=== PATIENT | male | born 1960 | race Caucasian/White ===

== ENCOUNTER 2025-01-28 19:36 | Emergency (ER) | payer OTHER ==
[~2025-01-28] VITALS: Ht 182.9 cm; Wt 109.0 kg
[2025-01-28 20:11] LABS: BASOPHILS 0.8 % (0-2); EOSINOPHILS 1.6 % (0-6); HEMATOCRIT 49.7 % (35.0-50.0); HEMOGLOBIN 17.7 g/dL (12.0-18.0); LYMPHOCYTES 26.7 % (24-44); MCH 31.2 (27-36); MCHC 35.6 g/dl (30-36); MCV 87.8 fl (81-99); MONOCYTES 8.2 % (0-12); NEUTROPHILS 62.7 % (39-80); PLATELET COUNT 217 K/uL (140-440); RBC 5.66 M/ul (4.3-5.7); RDW 13.2 (10.5-15.0)
[2025-01-28 20:22] LABS: ALBUMIN 3.8 g/dL (3.4-5.0); ALBUMIN/GLOBULIN RATIO 1.12 (1.1-2.4); ANION GAP 10.9 (7-21); BILIRUBIN, TOTAL 0.4 mg/dL (0.2-1.0); BUN/CREATININE RATIO 14.52 (6.0-28.6); CALCIUM 8.6 mg/dL (8.5-10.1); CREATININE, SERUM 1.17 mg/dL (0.70-1.30); MAGNESIUM 1.8 mg/dL (1.8-2.4); POTASSIUM 3.9 mmol/L (3.5-5.1); PROTEIN, TOTAL 7.2 g/dL (6.4-8.2)
[2025-01-28] MEDS ORDERED: ENALAPRILAT DIHYDRATE 1.25 MG/ML VIAL IV ONE (20:45)
[2025-01-28] MEDS ORDERED: LOSARTAN POTASS50 MG PO (21:27)
[2025-01-28 21:45] VITALS: BP 168/89
--- NOTE | 2025-01-30 18:36 | EKG ---
[facility] [address] [place], [place] [address] Signed Sinus rhythm with premature atrial complexes Cannot rule out Anterior infarct , age undetermined Abnormal ECG No previous ECGs available Confirmed by Hola Duncan MD ([id number]) on 01/30/2025 6:36:31 PM Electronically Signed By: HOLA DUNCAN MD 01/30/251835 PATIENT NAME: [id number] Electrocardiogram DATE OF : 64 PHYSICIAN: HOLA DNUCAN MD REPORT #: [id number] REPORT IS CONFIDENTIAL AND NOT TO BE RELEASED WITHOUT AUTHORIZATION
== END 2025-01-28 21:45 | disposition home or self-care (01) ==
LOC: ED 19:36
PROVIDERS: Family Medicine
DX: I10 Essential (primary) hypertension (principal); Z88.2 Allergy status to sulfonamides
CPT/HCPCS: 36415; 80053; 83735; 84484; 85025; 93005; 93010; 96374; 99283-25